=== PATIENT | female | born 1955 | race Two or more races ===

== ENCOUNTER → 2018-11-19 | Outpatient (CLI) | payer OTHER | END | disposition home or self-care (01) | LOC: RAD 15:19 | DX: M54.5 Low back pain (principal) ==

== ENCOUNTER 2020-07-27 12:05 | Emergency (ER) | payer OTHER ==
[~2020-07-27] VITALS: Ht 167.6 cm; Wt 61.7 kg
[2020-07-27] MEDS ORDERED: LIPITOR40 M1 PO (12:18)
[2020-07-27] MEDS ORDERED: VASOTEC10 MG NGT (12:18)
== END 2020-07-27 15:46 | disposition home or self-care (01) ==
LOC: ER 12:05
DX: M79.18 Myalgia, other site (principal); R51.9 Headache, unspecified

== ENCOUNTER 2020-07-31 11:13 | Emergency (ER) | payer OTHER ==
[~2020-07-31] VITALS: Ht 165.1 cm; Wt 66.2 kg
[~2020-07-31 11:13] MED LIST: LIPITOR40 M1 PO; VASOTEC10 MG NGT
[2020-07-31] MEDS ORDERED: KETO10TA2 PO (14:25)
[2020-07-31] MEDS ORDERED: NORFLEX100MG PO (14:25)
== END 2020-07-31 14:34 | disposition home or self-care (01) ==
LOC: ER 11:13
DX: M54.2 Cervicalgia (principal); M54.5 Low back pain

== ENCOUNTER 2023-11-10 16:18 | Emergency (ER) | payer OTHER ==
[~2023-11-10] VITALS: Ht 160 cm; Wt 65.8 kg
[~2023-11-10 16:18] MED LIST changes: +KETO10TA2 PO; +NORFLEX100MG PO
[2023-11-10] MEDS ORDERED: ONDANSETRON HCL 2 MG/ML VIAL IV ONE (18:15)
[2023-11-10] MEDS ORDERED: ORPHENADRINE CITRATE 30 MG/ML AMPUL IM ONE (18:15)
[2023-11-10] MEDS ORDERED: FAMOTIDINE/PF 20 MG/2 ML VIAL IV ONE (18:15)
[2023-11-10] MEDS ORDERED: ONDANSETRON HCL 2 MG/ML VIAL ONE (18:18)
[2023-11-10] MEDS ORDERED: FAMOTIDINE/PF 20 MG/2 ML VIAL ONE (18:18)
[2023-11-10] MEDS ORDERED: ORPHENADRINE CITRATE 100 MG TABLET PO ONE (19:15)
[2023-11-10] MEDS ORDERED: KETOROLAC TROMETHAMINE 60 MG VIAL IM ONE ×2 (19:15→19:33)
== END 2023-11-10 20:21 ==
LOC: ER 16:19
DX: G43.909 Migraine, unspecified, not intractable, without status migrainosus (principal); M54.2 Cervicalgia; Z20.822 Contact with and (suspected) exposure to COVID-19; I10 Essential (primary) hypertension

== ENCOUNTER 2023-12-11 10:07 | Emergency (ER) | payer OTHER ==
[~2023-12-11] VITALS: Ht 167.6 cm; Wt 61.2 kg
[2023-12-11] MEDS ORDERED: ORPHENADRINE CITRATE 30 MG/ML AMPUL IM STA (11:03)
[2023-12-11] MEDS ORDERED: KETOROLAC TROMETHAMINE 30 MG VIAL IM STA (11:03)
[2023-12-11] MEDS ORDERED: KETOROLAC TROMETHAMINE 30 MG VIAL ONE (11:19)
[2023-12-11] MEDS ORDERED: ORPHENADRINE CITRATE 30 MG/ML AMPUL ONE (11:20)
== END 2023-12-11 11:33 | disposition home or self-care (01) ==
LOC: ER 10:09
DX: G43.909 Migraine, unspecified, not intractable, without status migrainosus (principal)

== ENCOUNTER 2025-01-06 11:28 | Emergency (ER) | payer OTHER ==
[~2025-01-06] VITALS: Ht 160 cm; Wt 63.5 kg
[2025-01-06] MEDS ORDERED: GUAIFENESIN 200 MG/10 ML BLIST.PACK PO ONE ×2 (14:07→14:15)
[2025-01-06] MEDS ORDERED: METHYLPREDNISOLONE SOD SUCC 125 MG VIAL ONE (14:07)
[2025-01-06] MEDS ORDERED: LEVALBUTEROL HCL 1.25 MG/3 ML SOLUTION IH SCH (14:15)
[2025-01-06] MEDS ORDERED: IPRATROPIUM BROMIDE 0.5 MG/2.5 ML AMPUL.NEB IH SCH (14:15)
[2025-01-06] MEDS ORDERED: METHYLPREDNISOLONE SOD SUCC 125 MG VIAL IV ONE (14:15)
[2025-01-06] MEDS ORDERED: BENZONATATE 100 MG CAPSULE PO ONE (14:15)
[2025-01-06 14:49] LABS: BASO % 0.9 % (0.1-1.2); EOS # 0.42 (0.04-0.54); EOS % 5.7 % (0.7-7.0); LYMPH # 1.93 (1.18-3.74); LYMPH % 26.2 % (19.3-53.1); MEAN PLATELET VOLUME 9.70 fl (9.4-12.4); MONO # 0.35 (0.24-0.82); MONO % 4.7 % (4.7-12.5); NEUT # 4.59 (1.56-6.13); NEUT % 62.2 % (34.0-71.1); RED CELL DISTRIBUTION WIDTH 12.2 % (11.6-14.4)
[2025-01-06 15:43] LABS: BUN CREA RATIO 16.0 (7.0-25.0); CREATININE SERUM 0.67 mg/dL (0.55-1.02); GFR 87.01; GLUCOSE FASTING 97.0 mg/dL (65-100); OSMOLALITY SERUM 279.0 MOSM/KG (275-295)
[2025-01-06] MEDS ORDERED: LEVALBUTEROL HCL 1.25 MG/3 ML SOLUTION IH ONE ×2 (16:29→16:59)
[2025-01-06 16:30] LABS: COVID-19 AG NEGATIVE (NEGATIVE)
[2025-01-06] MEDS ORDERED: IPRATROPIUM BROMIDE 0.5 MG/2.5 ML AMPUL.NEB IH ONE (16:30)
== END 2025-01-06 17:56 | disposition home or self-care (01) ==
LOC: ER 11:28
PROVIDERS: General Practice
DX: J45.901 Unspecified asthma with (acute) exacerbation (principal); R05.9 Cough, unspecified; Z20.822 Contact with and (suspected) exposure to COVID-19; I10 Essential (primary) hypertension
CPT/HCPCS: 36415; 71046; 94640; 96365; 99283; J3490

== ENCOUNTER 2025-01-13 07:01 | Emergency (ER) | payer OTHER ==
[~2025-01-13] VITALS: Ht 154.9 cm; Wt 62.6 kg
[~2025-01-13 07:01] MED LIST changes: +CRESTOR40 MG PO; +LIPITOR80 MG PO; +VASOTEC20 MG PO
[2025-01-13] MEDS ORDERED: METOCLOPRAMIDE HCL 5 MG/ML VIAL IM ONE (08:00)
[2025-01-13] MEDS ORDERED: METOCLOPRAMIDE HCL 5 MG/ML VIAL ONE (08:09)
[2025-01-13 09:26] LABS: BASO % 0.9 % (0.1-1.2); EOS # 0.22 (0.04-0.54); EOS % 2.9 % (0.7-7.0); LYMPH # 1.87 (1.18-3.74); LYMPH % 24.7 % (19.3-53.1); MEAN PLATELET VOLUME 9.50 fl (9.4-12.4); MONO # 0.57 (0.24-0.82); MONO % 7.5 % (4.7-12.5); NEUT # 4.80 (1.56-6.13); NEUT % 63.3 % (34.0-71.1); RED CELL DISTRIBUTION WIDTH 12.5 % (11.6-14.4)
[2025-01-13 09:28] LABS: URINE APPEARANCE Clear; URINE BILIRRUBIN Negative (NEGATIVE); URINE BLOOD Negative; URINE COLOR Yellow; URINE GLUCOSE Negative (NEGATIVE); URINE KETONE Negative (NEGATIVE); URINE LEUKOCYTE Large; URINE NITRATE Negative; URINE PROTEIN Negative (NEGATIVE); URINE UROBILINOGEN 0.2 E.U./dl
[2025-01-13 09:32] LABS: URINE BACTERIA 92.3 uL (0.0-1933); URINE EPITHELIAL CELLS 33.9 uL (0.0-38.8); URINE RBC 9.0 uL (0.0-20.8); URINE WBC 327.2 uL (0.0-23.2)
[2025-01-13 09:45] LABS: TYPE CELLS RENAL TUBULAR; URINE CAST 0.14 uL (0.0-1.40)
[2025-01-13 10:03] LABS: INR 0.97
[2025-01-13 10:29] LABS: ALT/SGPT 24.0 U/L (12-78); AST/SGOT 18.0 U/L (15-37); BILIRUBIN TOTAL 0.26 mg/dL (0.3-1.2); BUN CREA RATIO 14.0 (7.0-25.0); CREATININE SERUM 0.76 mg/dL (0.55-1.02); GFR 75.23; GLOBULINA 3.8 G/DL (2.4-3.5); GLUCOSE FASTING 113.0 mg/dL (65-100); OSMOLALITY SERUM 280.0 MOSM/KG (275-295); PHOSPHOKINASE CREATININE 104.0 U/L (26-192); TSH 1.23 uIU/mL (0.358-3.74)
[2025-01-13] MEDS ORDERED: ONDANSETRON HCL 2 MG/ML VIAL ONE (12:28)
[2025-01-13] MEDS ORDERED: FAMOTIDINE/PF 20 MG/2 ML VIAL ONE (12:29)
[2025-01-13] MEDS ORDERED: FAMOtidine 10 MG/ML (4ML VIAL) IV PUSH ONE (12:30)
== END 2025-01-13 16:40 | disposition home or self-care (01) ==
LOC: ER 07:01
PROVIDERS: General Practice
DX: R42 Dizziness and giddiness (principal); I10 Essential (primary) hypertension; Z91.013 Allergy to seafood
CPT/HCPCS: 36415; 70450; 71045; 93005; 96372; 99284; J3490 ×2